=== PATIENT | female | born 1955 | race African-American/Black ===

== ENCOUNTER 2022-10-22 21:37 | Emergency (ER) | payer MEDICARE, MEDICAID ==
[~2022-10-22] VITALS: Ht 165.1 cm; Wt 78.0 kg
[2022-10-22 21:46] VITALS: BP 134/72
== END 2022-10-22 23:30 | disposition left against medical advice (07) ==
LOC: EDSEX 21:37 → ER 21:37
DX: Z53.21 Procedure and treatment not carried out due to patient leaving prior to being seen by health care provider (principal)
CPT/HCPCS: 99281